=== PATIENT | male | born 1965 | race Two or more races ===

== ENCOUNTER 2020-08-15 22:59 | Emergency (ER) | payer MEDICAID, OTHER ==
[~2020-08-15] VITALS: Ht 177.8 cm; Wt 86.0 kg
[~2020-08-15 22:59] MED LIST: DIPH25CA83 PO
[2020-08-15 23:05] VITALS: BP 134/92
[2020-08-15] MEDS ORDERED: LIDOcaine 1% W/epiNEPHrine 1:200,000 10ml vial IJ ONE (23:15)
[2020-08-15] MEDS ORDERED: TETanus/Pertussis (Acell)/Diphther VAC/PF (Tdap-Adult) 0.5ml syringe IMVAC ONE (23:15)
== END 2020-08-16 01:16 | disposition home or self-care (01) ==
LOC: ER 22:59
DX: S01.412A Laceration without foreign body of left cheek and temporomandibular area, initial encounter (principal); F15.90 Other stimulant use, unspecified, uncomplicated; Z20.3 Contact with and (suspected) exposure to rabies; Z72.89 Other problems related to lifestyle; Z79.899 Other long term (current) drug therapy; X58.XXXA Exposure to other specified factors, initial encounter; Y93.89 Activity, other specified; Y92.89 Other specified places as the place of occurrence of the external cause; Y99.8 Other external cause status
CPT/HCPCS: 12013; 90471; 90715; 99283

== ENCOUNTER 2020-12-20 16:07 | Emergency (ER) | payer MEDICAID ==
[~2020-12-20] VITALS: Ht 177.8 cm; Wt 80.0 kg
[2020-12-20 16:17] VITALS: BP 141/90
== END 2020-12-20 20:16 | disposition left against medical advice (07) ==
LOC: ER 16:08
DX: L02.818 Cutaneous abscess of other sites (principal); Z53.21 Procedure and treatment not carried out due to patient leaving prior to being seen by health care provider